=== PATIENT | female | born 1965 | race Caucasian/White ===

== ENCOUNTER 2019-01-30 11:49 | Inpatient (IN) | payer BC ==
[~2019-01-30] VITALS: Ht 157.5 cm; Wt 83.1 kg
[2019-01-30 12:42] LABS: UA SPECIFIC GRAVITY 1.025 (1.005-1.035); microscopic required? YES; urine erythrocyte 1+ (NEGATIVE)
[2019-01-30 12:42] LABS: BASOPHIL % 0.2 % (0-2); PLATELET COUNT 289 x10^3mcL (130-400); RED CELL DISTRIBUTION WIDTH 12.3 % (11.5-14.5)
[2019-01-30 12:50] LABS: CALCIUM 8.4 mg/dL (8.5-10.1); CARBON DIOXIDE 20.5 mmol/L (21-32); CHLORIDE SERUM 102 mmol/L (98-107); CREATININE SERUM 0.7 mg/dL (0.6-1.0); GFR1 > 60 mL/min; GLUCOSE SERUM 91 mg/dL (74-106); POTASSIUM SERUM 3.4 mmol/L (3.5-5.1); SODIUM SERUM 139 mmol/L (136-145)
[2019-01-30 12:54] LABS: ALBUMIN 3.5 g/dL (3.4-5.0); ALKALINE PHOSPHATASE 50 U/L (46-116); ALT/SGPT 54 U/L (14-59); AST/SGOT 26 U/L (15-37); CHOLESTEROL 141 mg/dL (<200); HDL CHOLESTEROL 43 mg/dL (40-60); MAGNESIUM 1.9 mg/dL (1.8-2.4); TOTAL PROTEIN, SERUM 7.4 g/dL (6.4-8.2)
[2019-01-30 13:03] LABS: T3 TOTAL 0.89 ng/mL
[2019-01-30 13:15] LABS: FREE T4 1.87 ng/dL (0.76-1.46); FREE THYROXINE INDEX 4.6 ug/dL (1.4-4.5); T4(THYROXINE) 11.5 ug/dL (4.7-13.3)
[2019-01-30 17:51] LABS: IRON 38 ug/dL (50-170); TOTAL IRON BINDING CAPACITY 262 ug/dL (250-450)
[2019-01-30 18:00] LABS: RED BLOOD CELLS 4.83 M/mm3 (4.10-5.10)
[2019-01-30 18:12] VITALS: BP 120/71
[2019-01-30 18:15] VITALS: Ht 157.5 cm; Wt 83.1 kg
[2019-01-30 20:30] VITALS: BP 108/65
[2019-01-30 20:35] VITALS: BP 108/65
[2019-01-30 21:53] LABS: AMPHETAMINE QUAL UR NONE DETECTED (See below)
[2019-01-31 05:07] VITALS: BP 123/67
[2019-01-31 06:40] LABS: BASOPHIL % 0.4 % (0-2); PLATELET COUNT 264 x10^3mcL (130-400); RED CELL DISTRIBUTION WIDTH 12.8 % (11.5-14.5)
[2019-01-31 06:55] LABS: CALCIUM 8.2 mg/dL (8.5-10.1); CARBON DIOXIDE 26.8 mmol/L (21-32); CHLORIDE SERUM 105 mmol/L (98-107); CREATININE SERUM 0.7 mg/dL (0.6-1.0); GFR1 > 60 mL/min; GLUCOSE SERUM 85 mg/dL (74-106); PHOSPHOROUS 3.1 mg/dL (2.5-4.9); POTASSIUM SERUM 3.4 mmol/L (3.5-5.1); SODIUM SERUM 140 mmol/L (136-145)
[2019-01-31 07:44] VITALS: BP 119/75
[2019-01-31 13:04] VITALS: BP 131/75
[2019-01-31 15:30] VITALS: BP 125/75
[2019-01-31 17:58] VITALS: BP 118/70
[2019-01-31 20:51] VITALS: BP 125/78
[2019-02-01 05:45] VITALS: BP 122/72
[2019-02-01 08:14] VITALS: BP 107/66
[2019-02-01] MEDS ORDERED: PEPCID20 MG PO (09:24)
[2019-02-01] MEDS ORDERED: MECLIZINE HCL12.5 MG PO (09:25)
[2019-02-01 11:51] VITALS: BP 107/66
== END 2019-02-01 13:17 | disposition home or self-care (01) | DRG 392 ==
LOC: ED 11:49 → MU 16:58
PROVIDERS: Emergency Medicine; ADMIT General Practice
DX: A08.4 Viral intestinal infection, unspecified (principal); F12.90 Cannabis use, unspecified, uncomplicated; G47.30 Sleep apnea, unspecified; R42 Dizziness and giddiness
CPT/HCPCS: 84439; 87046; 87046-59; 87804; G0378; J0744; J2060; J3490; J7030; Q0092

== ENCOUNTER 2019-02-10 23:43 | Inpatient (IN) | payer BC ==
[~2019-02-10] VITALS: Ht 154.9 cm; Wt 82.2 kg
[~2019-02-10 23:43] MED LIST: MECLIZINE HCL12.5 MG PO; PEPCID20 MG PO
[2019-02-10 23:53] VITALS: Ht 154.9 cm; Wt 82.2 kg
[2019-02-11 01:58] LABS: BASOPHIL % 0.7 % (0-2); PLATELET COUNT 266 x10^3mcL (130-400); RED CELL DISTRIBUTION WIDTH 12.4 % (11.5-14.5)
[2019-02-11 02:24] LABS: CALCIUM 8.6 mg/dL (8.5-10.1); CHLORIDE SERUM 104 mmol/L (98-107); CREATININE SERUM 0.9 mg/dL (0.6-1.0); GFR1 > 60 mL/min; GLUCOSE SERUM 102 mg/dL (74-106); POTASSIUM SERUM 3.7 mmol/L (3.5-5.1); SODIUM SERUM 141 mmol/L (136-145)
[2019-02-11 02:28] LABS: ALKALINE PHOSPHATASE 50 U/L (46-116); ALT/SGPT 45 U/L (14-59); AST/SGOT 13 U/L (15-37); CHOLESTEROL 143 mg/dL (<200); TOTAL PROTEIN, SERUM 7.2 g/dL (6.4-8.2)
[2019-02-11 02:30] LABS: ALBUMIN 3.3 g/dL (3.4-5.0)
[2019-02-11 04:47] LABS: AMPHETAMINE QUAL UR NONE DETECTED (See below)
[2019-02-11 12:53] LABS: PHOSPHOROUS 4.2 mg/dL (2.5-4.9)
[2019-02-11 14:37] VITALS: BP 130/79
[2019-02-11 19:57] LABS: AMPHETAMINE QUAL UR NONE DETECTED (See below)
[2019-02-11 20:50] VITALS: BP 115/71
[2019-02-12 05:21] VITALS: BP 116/63
[2019-02-12 06:33] LABS: BASOPHIL % 0.2 % (0-2); PLATELET COUNT 215 x10^3mcL (130-400); RED CELL DISTRIBUTION WIDTH 13.4 % (11.5-14.5)
[2019-02-12 06:49] LABS: CALCIUM 7.6 mg/dL (8.5-10.1); CARBON DIOXIDE 22.7 mmol/L (21-32); CHLORIDE SERUM 108 mmol/L (98-107); CREATININE SERUM 0.8 mg/dL (0.6-1.0); GFR1 > 60 mL/min; GLUCOSE SERUM 102 mg/dL (74-106); POTASSIUM SERUM 3.6 mmol/L (3.5-5.1); SODIUM SERUM 141 mmol/L (136-145)
[2019-02-12 09:39] VITALS: BP 138/87
[2019-02-12 17:18] VITALS: BP 130/78
[2019-02-12 19:44] VITALS: BP 129/79
[2019-02-13 06:30] VITALS: BP 112/75
[2019-02-13 12:54] VITALS: BP 121/88
[2019-02-13 17:00] VITALS: BP 123/85
[2019-02-13 19:10] VITALS: BP 128/77
[2019-02-14 05:24] VITALS: BP 133/81
[2019-02-14 06:34] LABS: BASOPHIL % 0.3 % (0-2); PLATELET COUNT 178 x10^3mcL (130-400); RED CELL DISTRIBUTION WIDTH 13.4 % (11.5-14.5)
[2019-02-14 06:56] LABS: CALCIUM 7.9 mg/dL (8.5-10.1); CARBON DIOXIDE 22.4 mmol/L (21-32); CHLORIDE SERUM 107 mmol/L (98-107); CREATININE SERUM 0.6 mg/dL (0.6-1.0); GFR1 > 60 mL/min; GLUCOSE SERUM 96 mg/dL (74-106); POTASSIUM SERUM 3.3 mmol/L (3.5-5.1); SODIUM SERUM 139 mmol/L (136-145)
[2019-02-14 10:00] VITALS: BP 124/80
[2019-02-14 14:17] VITALS: BP 127/83
[2019-02-14 15:55] VITALS: BP 127/83
[2019-02-14 17:49] VITALS: BP 130/87
[2019-02-14 20:26] VITALS: BP 113/70
[2019-02-15 05:03] VITALS: BP 127/85
[2019-02-15 08:00] VITALS: BP 120/77
[2019-02-15 11:57] VITALS: BP 120/77
== END 2019-02-15 12:50 | DRG 93 ==
LOC: ED 23:43 → MU 02-11 12:07 → DU 02-13 08:42 → MU 02-15 10:26
PROVIDERS: Emergency Medicine; ADMIT Internal Medicine
DX: G92 Toxic encephalopathy (principal); G47.00 Insomnia, unspecified; F79 Unspecified intellectual disabilities; G47.30 Sleep apnea, unspecified
CPT/HCPCS: 82962; 97116-GP; 97530-GP; G0378; G0480; J2060; J7030